=== PATIENT | male | born 1990 | race Caucasian/White ===

== ENCOUNTER 2019-05-27 22:28 | Emergency (ER) | payer OTHER ==
[~2019-05-27] VITALS: Ht 168.9 cm; Wt 90.3 kg
[~2019-05-27 22:28] MED LIST: IBUP-1542 PO
[2019-05-27 23:01] VITALS: Ht 168.9 cm; Wt 90.3 kg
[2019-05-28] MEDS ORDERED: ACETAMINOPHEN 500 MG TAB PO STA (01:15)
[2019-05-28 02:07] VITALS: BP 114/71; PULSE 63; RESP 17
== END 2019-05-28 02:06 | disposition home or self-care (01) ==
LOC: FTE 22:28
DX: R07.89 Other chest pain (principal)
CPT/HCPCS: 71045; 93005; Z7502; Z7610